=== PATIENT | female | born 1980 | race Caucasian/White ===

== ENCOUNTER 2017-03-07 12:25 | Emergency (ER) | payer MEDICAID ==
[~2017-03-07] VITALS: Ht 149.9 cm; Wt 56.8 kg
[2017-03-07 15:50] VITALS: BP 101/60
== END 2017-03-07 15:50 | disposition home or self-care (01) ==
LOC: ED 12:25
DX: O21.9 Vomiting of pregnancy, unspecified (principal); O16.1 Unspecified maternal hypertension, first trimester; J45.909 Unspecified asthma, uncomplicated; Z3A.01 Less than 8 weeks gestation of pregnancy; Z79.899 Other long term (current) drug therapy
CPT/HCPCS: J2765; J7030